=== PATIENT | female | born 1965 | race Caucasian/White ===

== ENCOUNTER → 2023-11-02 17:50 | Outpatient (REF) | payer BC, SELFPAY | LOC: WDC 17:50 | PROVIDERS: ATTENDING PHYSICIAN Nurse Practitioner Family | DX: Z12.31 Encounter for screening mammogram for malignant neoplasm of breast (principal) | CPT/HCPCS: 77063; 77067 ==

== ENCOUNTER → 2023-12-15 07:38 | Outpatient (REF) | payer BC, SELFPAY ==
[2023-12-15 09:05] LABS: Erythrocyte Sed Rate 14 mm/hour (0-20)
[2023-12-15 09:12] LABS: ALT (SGPT) 28 U/L (0-35); AST (SGOT) 29 U/L (14-36); Albumin 4.5 g/dl (3.5-5.0); Alkaline Phosphatase 114 U/L (38-126); Direct Bilirubin 0.3 mg/dl (0.0-0.4); Total Bilirubin 0.6 mg/dl (0.2-1.3)
[2023-12-18 10:18] LABS: ANA, IgG Reflex to HEp-2 None Detected (None Detected)
== END ==
LOC: RAD 07:38
PROVIDERS: ATTENDING PHYSICIAN Nurse Practitioner Family
DX: D17.1 Benign lipomatous neoplasm of skin and subcutaneous tissue of trunk (principal); M25.50 Pain in unspecified joint
CPT/HCPCS: 76700; 80076; 85652; 86038; 86430; 86618